=== PATIENT | male | born 1950 | race Caucasian/White ===

== ENCOUNTER 2017-01-18 16:08 | Inpatient (IN) | payer MEDICARE ==
[~2017-01-18] VITALS: Ht 177.8 cm; Wt 117.2 kg
--- NOTE | ~2017-01-18 | ECH ---
Transthoracic Echocardiography Report (TTE) Demographics Patient Name ADRIEL SALINAS Date of Study 01/19/2017 Patient Number [id number] Visit Number [id number] Date of 1950 Room Number 307 Accession Number [id number] Gender Male Age 66 year(s) Referring Chante Gee MD Turkish Line Attendant Meagan Martinez Physician RDCS Physician Interpreting Radha HOLLEY Data Consultant Physician Nain Supervising Ordering Physician Radha HOLLEY MD/ALEXANDER [place] Nurse Stress Cupola Charger Insulation Conclusions Contractility Score Summary At rest the following contractility abnormalities were noted: Hypokinesis of the Apical septal and the Apical cap segments. Contractility of all other segments appeared normal. Summary Limited study for ejection fraction and wall motion. Doppler not performed. The estimated left ventricular ejection fraction is 55-60%. The left ventricle is mildly dilated . The right atrium is mildly dilated. Normal appearing valves. Recommendation The patient was given the results of the exam during their hospital stay. Procedure Type of Study TTE procedure:Echo Limited SF. Procedure Date Date: 01/19/2017 Start: 08:31 Technical Quality: Adequate visualization Indications:Non-ischemic cardiomyopathy. Additional Indications:History of HI/stent Appropriate Use Criteria: 9 Height: 70 inches Weight: 268 pounds BSA: 2.36 m Rhythm: Within normal limits HR: 94 bpm BP: 117/82 mmHg Allergies - Other:(Ibuprofen). M-Mode/2D Measurements LV Diastolic Dimension: 6.23 cm LV Systolic Dimension: 5.82 cm LV Septum Diastolic: 0.99 cm LV PW Diastolic: 0.99 cm AO Root Dimension: 3.13 cm LA Dimension: 4.2 cm RV Diastolic Dimension: 4.2 cm LA volume: 58.54 ml LA volume index: 25 ml/m RV Base: 3.1 cm RV Mid: 2.7 cm TAPSE: 2.7 cm Doppler Measurements RA Area: 22.51 cm Findings Left Ventricle The left ventricle is mildly dilated . Right Ventricle Normal right ventricle structure and function. Left Atrium Normal left atrial size. Right Atrium The right atrium is mildly dilated. Mitral Valve Normal mitral valve structure and function. Aortic Valve Normal aortic valve structure and function. Tricuspid Valve Normal tricuspid valve structure and function. Pulmonic Valve The pulmonic valve is not well visualized. Pericardial Effusion No evidence of pericardial effusion. Miscellaneous Visualized portions of the aortic root and ascending aorta appear normal in size. Pleural Effusion No evidence of pleural effusion. Contractility Score LV regional wall motion:(0-Non visualized 1-Normal 2-Hypokinesis 3-Akinesis 4-Dyskinesis 5-Aneurysm) Signature
[~2017-01-18 16:08] MED LIST: ACCUNEB DP0.63 MG/3 IH; CARVEDILOL25 MG PO; LIPITOR DPS40 MG PO; MUCINEX600 MG PO; PRILOSEC DPS20 MG PO; TYLENOL EXTRA500 M1 PO; ULORIC40 MG PO; ULORIC80 MG PO; VIIBRYD20 MG PO; ZESTRIL DPS10 MG PO; [UNRECOGNIZED DRUG - OTHER] PO
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
--- NOTE | 2017-01-23 01:02 | NUR ---
Called Dr Pierson because pt requested something for sleep aid. See new orders.
[2017-01-28] MEDS ORDERED: SPIRIVA18 MCG IH (12:00)
[2017-01-28] MEDS ORDERED: PROAIR HFA8.5 GM IH (12:00)
[2017-01-28] MEDS ORDERED: SYMBICORT160 MCG/6 IH (12:00)
[2017-01-28] MEDS ORDERED: POTASSIUM CHLO20 ME2 PO (12:01)
[2017-01-28] MEDS ORDERED: BRILINTA90 MG PO (12:01)
[2017-01-28] MEDS ORDERED: LASIX DPS80 MG PO (12:01)
[2017-01-28] MEDS ORDERED: ASPIR 8181 MG PO (12:02)
[2017-01-28] MEDS ORDERED: DELTASONE DPS5 MG PO (12:02)
[2017-01-28] MEDS ORDERED: ZEBETA5 MG PO (12:03)
[2017-01-28] MEDS ORDERED: GLUCOTROL XL DPS5 MG PO (12:03)
[2017-01-28] MEDS ORDERED: GLUCOPHAGE1000 MG PO (12:03)
[2017-01-28] MEDS ORDERED: LOPID DPS600 MG PO (12:04)
[2017-01-28] MEDS ORDERED: PEPCID DPS20 MG PO (12:04)
[2017-01-28] MEDS ORDERED: DUONEB DPS3 ML IH (12:04)
--- NOTE | 2017-02-07 15:42 | ER ---
ADMIT: 01/18/2017 RM/LOC: 307 [facility] MR#: [id number] [address] [address] ADRIEL SALINAS [address] [place] [address] Emergency Room Report SEX: M AGE: 66 : 1950 DATE: 01/18/2017 Mr. Adriel Salinas is a 66-year-old male who was seen in [place] [facility] initially for acute shortness of breath. Unable to provide any history from the patient as he is in respiratory distress. He was placed on BiPAP urgently. Apparently, has history of COPD, CHF, coronary artery disease, and gout secondary to the severity of his respiratory distress. Unable to obtain review of systems. He was initially seen in [place] ER, transferred down for care of his respiratory problems. He is a morbidly obese gentleman in severe distress. He is urgently placed on BiPAP and ABG was obtained, which revealed pH of 7.40, pCO2 57.6, PO2 of 70, saturation 93%. He is on BiPAP of 16/10. Cardiovascular reveals a tachycardia with no murmurs or gallops. Lungs have diminished breath sounds throughout, prolonged expirations. Abdomen is morbidly obese with a ventral hernia present. Lower extremities were significant for 3+ pitting edema. Chest x-ray reveals bibasilar infiltrates. White count is 15.5, hemoglobin 12.0, glucose 169, creatinine 1.4, magnesium 1.3, lactic acid 2.7, BNP is 306. The patient is being admitted with diagnosis of pneumonia and sepsis. See Choi MD/ lissettel JOB #: [id number] CC: Gabino Sharif MD, Attending Physician Best Weiss MD, Family Physician
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
== END 2017-01-27 12:39 | disposition home or self-care (01) | DRG 189 ==
LOC: ER 16:08 → 3ICU 17:06 → 4PCU 01-24 00:46
PROVIDERS: ADMIT Internal Medicine
DX: J96.90 Respiratory failure, unspecified, unspecified whether with hypoxia or hypercapnia (principal); J18.9 Pneumonia, unspecified organism; I50.22 Chronic systolic (congestive) heart failure; I42.9 Cardiomyopathy, unspecified; E83.42 Hypomagnesemia; E11.22 Type 2 diabetes mellitus with diabetic chronic kidney disease; J44.0 Chronic obstructive pulmonary disease with (acute) lower respiratory infection; J44.1 Chronic obstructive pulmonary disease with (acute) exacerbation; I27.81 Cor pulmonale (chronic); G47.33 Obstructive sleep apnea (adult) (pediatric); E66.01 Morbid (severe) obesity due to excess calories; I25.10 Atherosclerotic heart disease of native coronary artery without angina pectoris; M10.9 Gout, unspecified; K43.9 Ventral hernia without obstruction or gangrene; I25.2 Old myocardial infarction; T78.3XXA Angioneurotic edema, initial encounter; T39.315A Adverse effect of propionic acid derivatives, initial encounter; J84.89 Other specified interstitial pulmonary diseases; N18.9 Chronic kidney disease, unspecified; Z95.5 Presence of coronary angioplasty implant and graft